=== PATIENT | female | born 1980 | race Caucasian/White ===

== ENCOUNTER 2017-05-31 21:40 | Emergency (ER) | payer OTHER ==
[2017-05-31 22:18] VITALS: BP 130/69
--- NOTE | 2017-05-31 22:56 | ER Document Report ---
ED Extremity Problem, Lower - General Mode of Arrival: Ambulatory Information source: Patient TRAVEL OUTSIDE OF THE [place] IN LAST 30 DAYS: No - HPI Occurred: Other - Refer to HPI notes <STELLA JORDAN - Last Filed: 06/01/17 02:49> <HOLDEN LEYVA - Last Filed: 06/01/17 03:28> - General Chief Complaint: Leg Pain Stated Complaint: LEG PAIN Notes: Patient is a 36-year-old female presents emergency department for some lower extremity edema and leg.". Patient states that she has had these symptoms on and off for 1 month. Patient states she is walking today and noticed some pain in her left leg and noticed that there was a knot where her pain was. Patient denies any history of DVT, PE, or chronic lower extremity swelling. Patient states he has been taking ibuprofen. Patient states her grandmother and mother both had a history of arthritis. Patient primary care physician is the [facility]. Patient is in no acute distress. Patient is allergic to hydrocodone and penicillin. (STELLA JORDAN) - Related Data Allergies/Adverse Reactions: hydrocodone Allergy (Verified 05/31/17 22:15) Penicillins Allergy (Verified 05/31/17 22:15) Past Medical History - General Information source: Patient - Social History Smoking Status: Never Smoker Cigarette use (# per day): No Chew tobacco use (# tins/day): No Smoking Education Provided: No Frequency of alcohol use: None Drug Abuse: None Family History: None Patient has suicidal ideation: No Patient has homicidal ideation: No - Medical History Medical History: Negative Surgical Hx: Negative <STELLA JORDAN - Last Filed: 06/01/17 02:49> Review of Systems - Review of Systems Constitutional: No symptoms reported EENT: No symptoms reported Cardiovascular: No symptoms reported Respiratory: No symptoms reported Gastrointestinal: No symptoms reported Genitourinary: No symptoms reported Female Genitourinary: No symptoms reported Musculoskeletal: See HPI Skin: No symptoms reported Hematologic/Lymphatic: No symptoms reported Neurological/Psychological: No symptoms reported -: Yes All other systems reviewed and negative <STELLA JORDAN - Last Filed: 06/01/17 02:49> Physical Exam - Vital signs Interpretation: Normal <STELLA JORDAN - Last Filed: 06/01/17 02:49> <HOLDEN LEYVA - Last Filed: 06/01/17 03:28> - Vital signs Vitals: Pulse Resp BP Pulse Ox 91 20 130/69 H 100 05/31/17 22:15 05/31/17 22:15 05/31/17 22:15 05/31/17 22:15 - Notes Notes: GENERAL: Alert, interacts well. No acute distress. HEAD: Normocephalic, atraumatic. EYES: Appear normal. Pupils equal, round, and reactive to light. ENT: Moist mucus membranes, tongue midline. NECK: Full range of motion. Supple. Trachea midline. LUNGS: Clear to auscultation bilaterally, no wheezes, rales, or rhonchi. No respiratory distress. HEART: Regular rate and rhythm. No murmurs, gallops, or rubs. ABDOMEN: Soft, non-tender. Non-distended. Normal bowel sounds. EXTREMITIES: Moves all 4 extremities spontaneously. Normal strength. No peripheral edema. Patient has a few papular nodules on his skin which are not consistent with an abscess, cellulitis, crepitus or necrosis. No clinical signs of DVT. The patient had good pulses and perfusion with a normal neurovascular status. NEUROLOGICAL: Alert and oriented x3. Normal speech. No focal neurological deficits. GSC 15. PSYCH: Normal affect, normal mood. SKIN: Warm, dry, normal turgor. (STELLA JORDAN) Course - Laboratory Result Diagrams: 05/31/17 23:40 <STELLA JORDAN - Last Filed: 06/01/17 02:49> - Laboratory Result Diagrams: 05/31/17 23:40 <HOLDEN LEYVA - Last Filed: 06/01/17 03:28> - Re-evaluation Re-evalutation: 06/01/17 00:32 Patient presents emergency department with problems with her legs for 1-2 months. She says she was seen at the [facility] but they did not do anything about it. She says she feels knots in her legs and occasionally gets swollen. On physical examination she is well-appearing nontoxic no acute shortness of breath vital signs are stable no shortness breath wheezes or rales. Abdomen is soft she has no peripheral edema she has a few palpable nodules underneath her skin but they are not abscesses cellulitis crepitus necrosis no clinical signs for DVT good pulses and perfusion with normal neurovascular status. She describes them as bumps and cramps he gets tingly sometimes. Laboratory evaluation is stable no emergent medical condition requiring intervention at this time but she is follow primary care physician for ongoing evaluation and discussed reasons for ED return sooner 06/01/17 03:28 (HOLDEN LEYVA) - Vital Signs Vital signs: Temp Pulse Resp BP Pulse Ox 91 20 130/69 H 100 05/31/17 22:15 05/31/17 22:15 05/31/17 22:15 05/31/17 22:15 - Laboratory Laboratory results interpreted by me: 05/31/17 23:40 Carbon Dioxide 21 L Discharge <STELLA JORDAN - Last Filed: 06/01/17 02:49> <HOLDEN LEYVA - Last Filed: 06/01/17 03:28> - Discharge Clinical Impression: Bilateral leg pain of unknown etiology Condition: Stable Disposition: HOME, SELF-CARE Additional Instructions: Leg Cramps/ pain There are many causes of leg cramps. Most of the time, there is no underlying serious medical condition. Calf muscle cramps that occur at rest or during the night are a nuisance, but are usually not caused by any serious medical problem. Leg cramps that occur during exercise (walking, stair climbing) can be caused by poor circulation. Cramping is more likely to occur if the legs swell. Over-exercise or overheating can cause muscle spasms even with good circulation. Cramp-like muscle pain can be an early symptom of blood clots in the lower leg. Sometimes cramping is due to a previous muscle injury. Occasionally cramping is a symptom of dehydration or of low levels of sodium, potassium, calcium or magnesium. When a cramp occurs, stretch gently and massage the cramped muscle. Get enough fluids, potassium, and sodium for the muscle to work normally. Avoid strenuous exercise for several days if you've been having frequent leg cramps. Medicines such a quinine may be helpful in some patients with night cramps. Call the doctor or return if you develop redness, swelling, bruising, or increased pain in the leg, or if the foot becomes cold, numb, pale, or discolored. Follow-up with your physician at the [facility] for increasing worsening or new symptoms Scribe Attestation: 06/01/17 00:32 I personally performed the services described in the documentation reviewed the documentation recorded by my scribe in my presence and it accurately and completely records my words and actions (HOLDEN LEYVA) Scribe Documentation - Scribe Written by Fabio:: Fabio Marquez, 06/01/2017 2:50 acting as scribe for :: Silvestre <STELLA JORDAN - Last Filed: 06/01/17 02:49>
[2017-06-01 00:23] LABS: ANION GAP 15 (5-19); BLOOD UREA NITROGEN 14 mg/dL (7-20); CALCIUM 9.6 mg/dL (8.4-10.2); CARBON DIOXIDE 21 mmol/L (22-30); CHLORIDE 106 mmol/L (98-107); CREATININE RESULT 0.88 mg/dL (0.52-1.25); GLUCOSE 92 mg/dL (75-110); POTASSIUM 3.9 mmol/L (3.6-5.0); SODIUM 141.9 mmol/L (137-145)
== END 2017-06-01 01:03 | disposition home or self-care (01) ==
LOC: ER 21:40
DX: M79.604 Pain in right leg (principal); M79.605 Pain in left leg; G89.29 Other chronic pain
CPT/HCPCS: 36415; 80048; 99283